=== PATIENT | female | born 1965 | race Caucasian/White ===

== ENCOUNTER 2024-03-28 10:33 | Emergency (ER) | payer OTHER, SELFPAY ==
[2024-03-28 10:33] VITALS: BP 147/110; BP 167/115; PULSE 123; PULSE 125; RESP 20; TEMP 36.8; O2SAT 97; BMI 30.5
[2024-03-28 10:55] VITALS: BP 167/110; PULSE 123; RESP 20; TEMP 36.8; O2SAT 97
--- NOTE | 2024-03-28 11:20 | EX.ED.DYSGE1 ---
HPI <QUINN Hayes - Last Filed: 03/28/24 13:58> History of Present Illness Chief Complaint: Wound Narrative Narrative: 58-year-old female presents with multiple areas of skin rash. Her primary concern is her left ring finger. She developed painful yellow swelling around the cuticle 3 days ago. 2 days ago she lanced it and it looked improved but she woke up this morning and is much more swollen, red, and painful. Over the last few days she has also had a moist red rash behind her left ear. She states she had 1 around her left eye but this resolved. She also has a rash in her groin. She denies fever or chills or nausea or vomiting. She states she sees a electro winning operator because she has had skin cancer in the past. She does not see a primary care doctor. She is not on any medications. PFSH <QUINN Hayes - Last Filed: 03/28/24 13:58> [facility] Medical History (Updated 03/28/24 @ 11:46 by QUINN Hayes) Osteoarthritis Home Medications ?Medication ?Instructions ?Recorded ?Last Taken ?Type cephalexin 500 mg capsule 500 mg PO Q6 7 days #28 CAPSULES 03/28/24 Unknown Rx nystatin 100,000 unit/gram topical 1 applic topical DAILY #30 grams 03/28/24 Unknown Rx ointment sulfamethoxazole 800 1 tab PO BID 7 days #14 tabs 03/28/24 Unknown Rx mg-trimethoprim 160 mg tablet (Bactrim DS) Allergy/AdvReac Type Severity Reaction Status Date / Time acetaminophen (From Vicodin) AdvReac OTHER Verified 03/28/24 10:34 hydrocodone (From Vicodin) AdvReac OTHER Verified 03/28/24 10:34 Surgical History (Updated 03/28/24 @ 10:50 by Seth Linn) H/O tubal ligation Social History Smoking Status: Never smoker ROS <QUINN Hayes - Last Filed: 03/28/24 13:58> ROS ED ROS Narrative Constitutional: Negative for fever, chills, malaise. GI: Negative for nausea, vomiting. Skin: Positive for rash. EXAM <QUINN Hayes - Last Filed: 03/28/24 13:58> Physical Exam Narrative Exam Narrative: CONST: Patient sitting in no acute distress. EYES: Normal inspection. NECK: Normal inspection. RESP: No respiratory distress, CTAB. CVS: Regular rate and rhythm, no murmur, no gallop. SKIN: Erythema with moist yellow scant discharge behind left ear appears to be candidiasis. In her groin and buttocks there is erythema with satellite lesions and moisture in the gluteal folds that also looks like candidiasis. Normal external genitalia. No warmth, fluctuance, tenderness or crepitus. No necrosis. EXTREMITIES: Left index finger has paronychia with yellow discoloration along the ulnar aspect, the medial aspect of the cuticles where she opened it is red and slightly swollen. The finger pad is normal. There is no redness or swelling of the middle or proximal phalanx or hand. Full range of motion. Brisk cap refill. NEURO: Alert and answering questions appropriately. PSYCH: Normal affect. Const Vital Signs: 03/28/24 10:33 03/28/24 10:33 03/28/24 10:55 Temperature 98.3 F 98.3 F Temperature Source Temporal Temporal Pulse Rate 125 H 123 H 123 H Respiratory Rate 20 H 20 H Blood Pressure 147/110 H 167/115 H 167/110 H Blood Pressure Mean 122 132 129 Pulse Ox 97 97 Oxygen Delivery Method Room Air Room Air 03/28/24 12:33 03/28/24 13:08 Temperature 98 F Temperature Source Pulse Rate 110 H 113 H Respiratory Rate 20 H 20 H Blood Pressure 144/100 H 144/100 H Blood Pressure Mean 114 114 Pulse Ox 98 98 Oxygen Delivery Method <Dr. Arya River MD - Last Filed: 03/28/24 11:46> Physical Exam Const Vital Signs: 03/28/24 10:33 03/28/24 10:33 03/28/24 10:55 Temperature 98.3 F 98.3 F Temperature Source Temporal Temporal Pulse Rate 125 H 123 H 123 H Respiratory Rate 20 H 20 H Blood Pressure 147/110 H 167/115 H 167/110 H Blood Pressure Mean 122 132 129 Pulse Ox 97 97 Oxygen Delivery Method Room Air Room Air 03/28/24 12:33 03/28/24 13:08 Temperature 98 F Temperature Source Pulse Rate 110 H 113 H Respiratory Rate 20 H 20 H Blood Pressure 144/100 H 144/100 H Blood Pressure Mean 114 114 Pulse Ox 98 98 Oxygen Delivery Method [facility] <QUINN Hayes - Last Filed: 03/28/24 13:58> MDM MDM Narrative Medical decision making narrative: History gathered from: Patient and spouse 58-year-old female has a left index finger paronychia. She attempted to drain at home but it got worse. She is neurovascularly intact. There is no sign of felon or flexor tenosynovitis. I performed a digital block and drained the area and left gauze packing in place. She was placed on Bactrim/Keflex for this and given wound care return precautions. She also appears to have skin yeast infections behind her left ear and in her groin and buttocks. There are no signs of secondary bacterial infection or foreign years gangrene. She was given a topical antifungal and advised to follow-up with her electro winning operator. I have personally performed a face to face assessment of the patient and have reviewed the NIXON Note. I performed a substantive portion of the visit including all aspects of the following. My roque findings include: History is [58-year-old female referred in from an urgent care. She has a history of infection behind her left ear in her groin and buttocks. She also more recently had a 3-day history of infection along the nail and skin border of the left index finger. She sees a electro winning operator due to history of melanoma. She does not have a primary care physician. She denies any systemic symptoms.] Exam is [well-appearing middle-aged female. Vital signs are stable afebrile. H EENT exam unremarkable. Neck nontender. Behind her left ear she has a rash with irritation of the skin. It does not look infected. It looks like a yeast infection. Lungs are clear. Heart regular rhythm rate about 100 currently. She was tachycardic on initial presentation. No murmur. Abdomen soft nontender. Moving all 4 extremities. Neurovascularly intact. Normal strength and range of motion. The left index finger she has a paronychia infection along the nail and skin. That will need to be drained. The finger is neurovascularly intact. There is only mild finger swelling. There is no lymphangitic streaking or axillary lymphadenopathy. Patient also has a rash in her groin and buttock crease. Consistent with a yeast infection.] Medical Decision Making [the left index finger paronychial infection of the incised and drained after digital block. She be placed on Bactrim and Keflex for a week. The yeast infection will be treated with antifungal cream and follow-up with her electro winning operator.] Other additions or changes: [None] Lab Data Labs: Laboratory Results - last 24 hr 03/28/24 11:44 POC Glucose 116 H <Dr. Arya River MD - Last Filed: 03/28/24 11:46> MDM MDM Narrative Medical decision making narrative: I have personally performed a face to face assessment of the patient and have reviewed the NIXON Note. I performed a substantive portion of the visit including all aspects of the following. My roque findings include: History is [58-year-old female referred in from an urgent care. She has a history of infection behind her left ear in her groin and buttocks. She also more recently had a 3-day history of infection along the nail and skin border of the left index finger. She sees a electro winning operator due to history of melanoma. She does not have a primary care physician. She denies any systemic symptoms.] Exam is [well-appearing middle-aged female. Vital signs are stable afebrile. H EENT exam unremarkable. Neck nontender. Behind her left ear she has a rash with irritation of the skin. It does not look infected. It looks like a yeast infection. Lungs are clear. Heart regular rhythm rate about 100 currently. She was tachycardic on initial presentation. No murmur. Abdomen soft nontender. Moving all 4 extremities. Neurovascularly intact. Normal strength and range of motion. The left index finger she has a paronychia infection along the nail and skin. That will need to be drained. The finger is neurovascularly intact. There is only mild finger swelling. There is no lymphangitic streaking or axillary lymphadenopathy. Patient also has a rash in her groin and buttock crease. Consistent with a yeast infection.] Medical Decision Making [the left index finger paronychial infection of the incised and drained after digital block. She be placed on Bactrim and Keflex for a week. The yeast infection will be treated with antifungal cream and follow-up with her electro winning operator.] Other additions or changes: [None] Lab Data Labs: Laboratory Results - last 24 hr 03/28/24 11:44 POC Glucose 116 H Procedures <QUINN Hayes - Last Filed: 03/28/24 13:58> Other Procedures Procedure(s): I&D of left index finger I performed a digital block with 1% lidocaine with good anesthetization. I used an 11 blade scalpel to go under the entire cuticle. There was bloody drainage, nothing significantly purulent. Iodoform gauze was packed under the cuticle to leave it draining and bulky dressing was placed. Discharge Plan Triage Chief Complaint: Wound ED Midlevel Provider: Komal Heaton ED Provider: Arya River Dx/Rx/DC Orders Clinical Impression: Paronychia of left index finger, Candidal skin infection, Candidiasis, intertrigo Instructions: ED Rhonda Skin Infection (Adult), ED Paronychia of the Finger or Toe Prescriptions: New sulfamethoxazole-trimethoprim [Bactrim DS] 800-160 mg tablet 1 tab PO BID 7 Days Qty: 14 0RF cephalexin 500 mg capsule 500 mg PO Q6 7 Days Qty: 28 0RF nystatin 100,000 unit/gram ointment 1 applic topical DAILY Qty: 30 0RF Rx Instructions: dry areas thoroughly and then apply to affected areas Primary Care Provider: Care Physician,No Primary Referrals: Care Physician,No Primary [Primary Care Provider] - Activity Restrictions/Additional Instructions: The infection on your fingers called a paronychia. It was incised and drained. There is a piece of gauze under the cuticle to leave open and draining. If this is not fallen out after 4 days you can moisten it and remove it. Keep the area clean and dry and take all of the antibiotics. If you develop worsening redness, swelling or pain please be reevaluated. I also prescribed antifungal cream to use for the yeast infection behind your ear and in your groin. Print Language: Moldovan Disposition Disposition: Home, Self Care Discharge Date/Time: 03/28/24 13:09
[2024-03-28] MEDS: FLUCONAZOLE 150 MG TABLET PO (11:55)
[2024-03-28] MEDS: Lidocaine 1% (20 ml mdv) 20 ML Vial INFILT (11:56)
[2024-03-28 12:01] LABS: Bedside Glucose 116 mg/dL (74-106)
--- NOTE | 2024-03-28 12:26 | CM.ED ---
Social work Reason for referral: no PCP Referral source: case find This SW identified patient's lack of PCP and need for resources. This SW entered patient's room, introducing self and role at [facility]. Patient lying in bed, alert and oriented. Patient's , [place], bedside; patient gave permission to speak in front of patient's . Patient's appeared defensive, asking reason for SW visit. This SW identified reason for visit and patient confirmed lacking a PCP due to patient's prior PCP retiring. Patient stated not needing to go to a doctor often due to usually being healthy. Patient accepted resources of [facility] Provider Directory and Adelia Lauren information. Patient stated not having insurance, but patient denied need for Medicaid application. No other needs identified at this time. Marija Lares, PAINTING CONTRACTOR, SEROLOGY TEACHER
[2024-03-28 12:33] VITALS: BP 144/100; PULSE 110; RESP 20; O2SAT 98
[2024-03-28] MEDS: Smz/Tmp Ds Tablet 1 TABLET PO (13:00)
[2024-03-28] MEDS: Cephalexin 250 MG Capsule 500 MG PO (13:00)
[2024-03-28 13:08] VITALS: BP 144/100; PULSE 113; RESP 20; TEMP 36.6; O2SAT 98
== END 2024-03-28 13:09 | disposition home or self-care (01) ==
PROVIDERS: Emergency Provider Emergency Medicine; Visit Provider Emergency Medicine
DX: L03.012 Cellulitis of left finger (principal); B37.2 Candidiasis of skin and nail
CPT/HCPCS: 10061; 82962; 99283